=== PATIENT | female | born 1995 | race African-American/Black ===

== ENCOUNTER 2020-08-21 07:49 | Emergency (ER) | payer MEDICAID ==
[~2020-08-21] VITALS: Ht 149.9 cm; Wt 108.9 kg
[2020-08-21] MEDS ORDERED: LORazepam 2MG/ML-1ML VIAL IV ONE (08:00)
[2020-08-21] MEDS ORDERED: SODIUM CHLORIDE 0.9% 1,000 ML IV ONE ×2 (08:00)
[2020-08-21 08:48] LABS: Basophils # (auto) 0.1 10 ^3/uL (0-0.2); Eosinophils # (auto) 0 10 ^3/uL (0-0.8); Mean Corpuscular Hemoglobin 30.6 pg (28.0-32.0)
[2020-08-21 08:49] LABS: Basophils % (auto) 0.4 % (0.0-2.0); Eosinophils % (auto) 0.1 % (0.0-7.0); Hematocrit 39.3 % (36.0-46.0); Hemoglobin 13.1 g/dL (12.2-16.2); Lymphocytes # (auto) 1.8 10 ^3/uL (0.4-5.4); Lymphocytes % (auto) 13.7 % (10.0-50.0); Mean Corpuscular Hgb Conc. 33.4 g/dL (32.0-36.0); Mean Corpuscular Volume 91.8 fL (80.0-100.0); Monocytes # (auto) 0.5 10 ^3/uL (0-1.3); Monocytes % (auto) 3.5 % (0.0-12.0); Neutrophils # (auto) 11.1 10 ^3/uL (1.6-8.6); Neutrophils % (auto) 82.3 % (37.0-80.0); Red Blood Cells 4.28 10^6/uL (4.0-5.20); Red Cell Distribution Width 13.9 % (11.8-14.3); White Blood Cell 13.5 10^3/uL (4.4-10.8)
[2020-08-21 09:03] LABS: Albumin 3.5 g/dL (3.4-5.0)
[2020-08-21 09:09] LABS: BUN/Creatinine Ratio 11.3; Bilirubin, Total 0.3 mg/dL (0.2-1.0); Total Protein 9.6 g/dL (6.4-8.2)
[2020-08-21 09:28] LABS: Platelet Count (auto) 537 10^3/uL (140-450)
[2020-08-21 12:21] LABS: Urine Bacteria NONE SEEN /hpf (None Seen); Urine Blood Negative /uL (Negative); Urine Hyaline Cast MOD /lpf (0 - 2); Urine Mucus FEW (None Seen); Urine Specific Gravity 1.021 (1.001-1.035); Urine WBC 5 /hpf (0 - 5)
[2020-08-21 12:37] LABS: Amphetamine Screen, Urine NEGATIVE (NEGATIVE); Barbiturate Scree,Urine NEGATIVE (NEGATIVE); Benzodiazephine Screen, Urine NEGATIVE (NEGATIVE); Cannabinoid Screen, Urine POSITIVE (NEGATIVE); Cocaine Screen, Urine POSITIVE (NEGATIVE); Phencyclidine Screen, Urine NEGATIVE (NEGATIVE)
[2020-08-21 12:44] LABS: Opiate Scree,Urine NEGATIVE (NEGATIVE)
[2020-08-21 13:00] VITALS: BP 128/76
== END 2020-08-21 13:06 | disposition home or self-care (01) ==
LOC: ER 07:49
DX: R56.9 Unspecified convulsions (principal); F12.10 Cannabis abuse, uncomplicated; F14.10 Cocaine abuse, uncomplicated; Z90.89 Acquired absence of other organs
CPT/HCPCS: 36415; 80053; 80307; 81001; 84702; 85025; 96361; 96374; 99283; J2060; J7030